=== PATIENT | female | born 1995 | race Caucasian/White ===

== ENCOUNTER 2020-02-03 14:38 | Emergency (ER) | payer SELFPAY ==
[~2020-02-03] VITALS: Ht 170.2 cm; Wt 126.4 kg
[2020-02-03 15:01] VITALS: Ht 170.2 cm; Wt 126.4 kg
[2020-02-03] MEDS ORDERED: HYDROCHLOROTH12.5 M1 PO (15:03)
[2020-02-03] MEDS ORDERED: NORVASC5 MG PO (15:03)
[2020-02-03] MEDS ORDERED: GLUCOPHAGE500 MG PO (15:03)
[2020-02-03 15:55] LABS: BILIRUBIN NEGATIVE (NEGATIVE); GLUCOSE NEGATIVE (NEGATIVE); KETONE NEGATIVE (NEGATIVE); NITRITE NEGATIVE (NEGATIVE); UROBILINOGEN NORMAL (NORMAL); WHITE CELLS - URINE OCC /hpf (NEGATIVE)
[2020-02-03 15:56] LABS: BACTERIA FEW /hpf (NEGATIVE)
[2020-02-03 16:09] LABS: HEMATOCRIT 46.6 % (36.0-48.0); HEMOGLOBIN 14.6 g/dL (12-16); LYMPHOCYTES 23.8 % (15-50); MCH 28.4 pg (26.0-34.0); MCHC 31.3 g/dL (31.0-37.0); MCV 90.7 fL (80.0-100.0); MEAN PLATELET VOLUME 10.2 fL (7.4-10.4); NEUTROPHILS 71.4 % (40-80); PLATELET COUNT 297 10x3/uL (130-400); RBC 5.14 10x6/uL (4.00-5.40); RDW 12.4 % (11.5-14.5); WBC 11.7 10x3/uL (4.8-10.8)
[2020-02-03 16:34] LABS: CALC OSMOLALITY 271 mosm/kg (275-300); CARBON DIOXIDE 28.2 mmol/L (21.0-32.0); CHLORIDE - SERUM 101 mmol/L (98-107); CREATININE - SERUM 0.8 mg/dL (0.6-1.3); GLUCOSE 96 mg/dL (74-106); POTASSIUM - SERUM 3.5 mmol/L (3.5-5.1); SODIUM 137 mmol/L (136-145); UREA NITROGEN 6 mg/dL (7-18); eGFR NON AFRICAN AMERICAN > 90 mL/min (90-120)
[2020-02-03 16:35] LABS: HCG SERUM NEGATIVE (NEGATIVE)
[2020-02-03 16:39] LABS: ALBUMIN 3.7 g/dL (3.4-5.0); ALKALINE PHOSPHATASE 81 U/L (30-120); ALT (SGPT) 33 U/L (10-68); BILIRUBIN - TOTAL 0.35 mg/dL (0.2-1.3); PROTEIN - SERUM 7.8 g/dL (6.4-8.2)
[2020-02-03 17:25] VITALS: BP 140/82
== END 2020-02-03 17:26 | disposition home or self-care (01) ==
LOC: D.ER 14:38
PROVIDERS: Family Medicine
DX: N93.9 Abnormal uterine and vaginal bleeding, unspecified (principal); E11.9 Type 2 diabetes mellitus without complications; Z79.84 Long term (current) use of oral hypoglycemic drugs; I10 Essential (primary) hypertension; Z72.0 Tobacco use

== ENCOUNTER → 2020-03-31 08:15 | Outpatient (CLI) | payer MEDICAID ==
[2020-02-03 15:01] VITALS: BMI 43.6
[~2020-03-31 08:15] MED LIST: GLUCOPHAGE500 MG PO; HYDROCHLOROTH12.5 M1 PO; NORVASC5 MG PO
== END | disposition home or self-care (01) ==
LOC: D.NM 08:15
PROVIDERS: ATTEND Surgery
DX: K21.9 Gastro-esophageal reflux disease without esophagitis (principal); R10.9 Unspecified abdominal pain; R11.2 Nausea with vomiting, unspecified